=== PATIENT | male | born 1995 | race Caucasian/White ===

== ENCOUNTER 2018-01-08 04:11 | Emergency (ER) | payer OTHER ==
[~2018-01-08] VITALS: Ht 175.3 cm; Wt 94.0 kg
[2018-01-08 04:26] VITALS: BP 128/71; PULSE 110; RESP 18; TEMP 98.7; O2SAT 98
[2018-01-08] MEDS ORDERED: BENZ0.5T PO (04:31)
[2018-01-08] MEDS ORDERED: RISP4TAB41 PO (04:31)
[2018-01-08] MEDS ORDERED: LITH8SYP PO (04:31)
--- NOTE | 2018-01-08 04:47 | PD ---
HPI Chief Complaint: Psychiatric Symptoms Time Seen by Provider: 04:26 Travel History International Travel<30 days: No Contact w/Intl Traveler<30days: No Traveled to known affect area: No History of Present Illness HPI Patient is a 22-year-old male presenting to the emergency department under [facility] act for psychiatric evaluation. Patient was found at the beach, soaked and covered in sand. Patient told his mother that he was going into the water to kill himself, he told her he was in direct contact with God. Patient denies this, he states he was at the beach looking for friends. He then started talking about a homeless man that his mother would not give a ride to who look like Evan. Patient denies any suicidal ideations, homicidal ideations, hallucinations. He has no physical complaints at this time. Patient lives with his mother who he states has her own issues. He reports being a "product of his environment". PFSH Past Medical History Bipolar Disorder: Yes Diminished Hearing: No Psychiatric: Yes (BIPOLAR WITH PSYCHOTIC FEATURES) Immunizations Current: Yes Tetanus Vaccination: Unknown Influenza Vaccination: Yes Past Surgical History Surgical History: No Previous Surgery Social History Alcohol Use: No Tobacco Use: No Substance Use: No Allergies-Medications (Allergen,Severity, Reaction): Coded Allergies: No Known Allergies (Unverified , 01/08/18) Reported Meds & Prescriptions Reported Meds & Active Scripts Active Reported [place] Liq 300 Mg/5 Ml Liq 150 Mg PO TID Benztropine (Benztropine Mesylate) 0.5 Mg Tab 0.5 Mg PO BID Risperdal (Risperidone) 4 Mg Tab 4 Mg PO DAILY Review of Systems Except as stated in HPI: all other systems reviewed are Neg Psychiatric: Positive: Suicidal Ideations, Disorder of Thought, Mood Disorder Physical Exam Narrative GENERAL: Well-developed, well-nourished, alert male. Presenting in no acute distress. SKIN: Warm and dry. HEAD: Atraumatic. Normocephalic. EYES: Pupils equal and round. No scleral icterus. No injection or drainage. ENT: No nasal bleeding or discharge. Mucous membranes pink and moist. NECK: Trachea midline. No JVD. CARDIOVASCULAR: Regular rate and rhythm. RESPIRATORY: No accessory muscle use. Clear to auscultation. Breath sounds equal bilaterally. GASTROINTESTINAL: Abdomen soft, non-tender, nondistended. Hepatic and splenic margins not palpable. MUSCULOSKELETAL: Extremities without clubbing, cyanosis, or edema. No obvious deformities. NEUROLOGICAL: Awake and alert. No obvious cranial nerve deficits. Motor grossly within normal limits. Five out of 5 muscle strength in the arms and legs. Normal speech. PSYCHIATRIC: Appropriate mood and affect; insight and judgment normal. Data Data Last Documented VS Vital Signs Date Time Temp Pulse Resp B/P (MAP) Pulse Ox O2 Delivery O2 Flow Rate FiO2 01/08/18 04:26 98.7 110 18 128/71 (90) 98 Orders Orders Complete Blood Count With Diff (01/08/18 04:26) Comprehensive Metabolic Panel (01/08/18 04:26) Thyroid Stimulating Hormone (01/08/18 04:26) Psych Screen (01/08/18 04:26) Drug Screen, Random Urine (01/08/18 04:26) Alcohol (Ethanol) (01/08/18 04:26) Salicylates (Aspirin) (01/08/18 04:26) Tylenol (Acetaminophen) (01/08/18 04:26) Diet Regular Basic (01/08/18 Breakfast) Labs Laboratory Tests Test 01/08/18 04:30 01/08/18 06:15 Urine Opiates Screen NEG Urine Barbiturates Screen NEG Urine Amphetamines Screen NEG Urine Benzodiazepines Screen NEG Urine Cocaine Screen NEG Urine Cannabinoids Screen NEG White Blood Count 11.9 TH/MM3 Red Blood Count 6.87 MIL/MM3 Hemoglobin 13.2 GM/DL Hematocrit 42.2 % Mean Corpuscular Volume 61.4 FL Mean Corpuscular Hemoglobin 19.3 PG Mean Corpuscular Hemoglobin Concent 31.4 % Red Cell Distribution Width 15.6 % Platelet Count 291 TH/MM3 Mean Platelet Volume 9.0 FL Neutrophils (%) (Auto) 75.2 % Lymphocytes (%) (Auto) 15.5 % Monocytes (%) (Auto) 8.4 % Eosinophils (%) (Auto) 0.1 % Basophils (%) (Auto) 0.8 % Neutrophils # (Auto) 9.0 TH/MM3 Lymphocytes # (Auto) 1.9 TH/MM3 Monocytes # (Auto) 1.0 TH/MM3 Eosinophils # (Auto) 0.0 TH/MM3 Basophils # (Auto) 0.1 TH/MM3 CBC Comment DIFF FINAL Differential Comment Blood Urea Nitrogen 15 MG/DL Creatinine 1.05 MG/DL Random Glucose 141 MG/DL Total Protein 6.9 GM/DL Albumin 3.8 GM/DL Calcium Level 8.4 MG/DL Alkaline Phosphatase 79 U/L Aspartate Amino Transf (AST/SGOT) 26 U/L Alanine Aminotransferase (ALT/SGPT) 38 U/L Total Bilirubin 0.6 MG/DL Sodium Level 142 MEQ/L Potassium Level 3.7 MEQ/L Chloride Level 108 MEQ/L Carbon Dioxide Level 24.8 MEQ/L Anion Gap 9 MEQ/L Estimat Glomerular Filtration Rate 90 ML/MIN Thyroid Stimulating Hormone 3rd Gen 3.870 uIU/ML Salicylates Level LESS THAN 1.7 MG/DL Acetaminophen Level LESS THAN 2.0 MCG/ML Ethyl Alcohol Level LESS THAN 3 MG/DL MDM Medical Decision Making Medical Screen Exam Complete: Yes Emergency Medical Condition: Yes Interpretation(s) Laboratory Tests Test 01/08/18 04:30 01/08/18 06:15 Urine Opiates Screen NEG Urine Barbiturates Screen NEG Urine Amphetamines Screen NEG Urine Benzodiazepines Screen NEG Urine Cocaine Screen NEG Urine Cannabinoids Screen NEG White Blood Count 11.9 TH/MM3 Red Blood Count 6.87 MIL/MM3 Hemoglobin 13.2 GM/DL Hematocrit 42.2 % Mean Corpuscular Volume 61.4 FL Mean Corpuscular Hemoglobin 19.3 PG Mean Corpuscular Hemoglobin Concent 31.4 % Red Cell Distribution Width 15.6 % Platelet Count 291 TH/MM3 Mean Platelet Volume 9.0 FL Neutrophils (%) (Auto) 75.2 % Lymphocytes (%) (Auto) 15.5 % Monocytes (%) (Auto) 8.4 % Eosinophils (%) (Auto) 0.1 % Basophils (%) (Auto) 0.8 % Neutrophils # (Auto) 9.0 TH/MM3 Lymphocytes # (Auto) 1.9 TH/MM3 Monocytes # (Auto) 1.0 TH/MM3 Eosinophils # (Auto) 0.0 TH/MM3 Basophils # (Auto) 0.1 TH/MM3 CBC Comment DIFF FINAL Differential Comment Blood Urea Nitrogen 15 MG/DL Creatinine 1.05 MG/DL Random Glucose 141 MG/DL Total Protein 6.9 GM/DL Albumin 3.8 GM/DL Calcium Level 8.4 MG/DL Alkaline Phosphatase 79 U/L Aspartate Amino Transf (AST/SGOT) 26 U/L Alanine Aminotransferase (ALT/SGPT) 38 U/L Total Bilirubin 0.6 MG/DL Sodium Level 142 MEQ/L Potassium Level 3.7 MEQ/L Chloride Level 108 MEQ/L Carbon Dioxide Level 24.8 MEQ/L Anion Gap 9 MEQ/L Estimat Glomerular Filtration Rate 90 ML/MIN Thyroid Stimulating Hormone 3rd Gen 3.870 uIU/ML Salicylates Level LESS THAN 1.7 MG/DL Acetaminophen Level LESS THAN 2.0 MCG/ML Ethyl Alcohol Level LESS THAN 3 MG/DL Vital Signs Date Time Temp Pulse Resp B/P (MAP) Pulse Ox O2 Delivery O2 Flow Rate FiO2 01/08/18 04:26 98.7 110 18 128/71 (90) 98 Differential Diagnosis Mood disorder versus psychosis versus substance abuse versus suicidal ideations versus other Narrative Course Patient is a 22-year-old male that presented to the emergency department under [facility] act for psychiatric evaluation. His vital signs are stable, Mental health screening discussed with the patient. Psychiatric screen ordered. Labs reviewed, no acute findings identified. Urine drug screen is negative, alcohol level is negative, acetaminophen and salicylate levels are unremarkable. Patient has been resting comfortably. He is medically cleared for psychiatric evaluation Diagnosis Primary Impression: Medical clearance for psychiatric admission Condition: Stable Debra Stevens January 08, 2018 04:47
[2018-01-08 06:45] LABS: BASOPHIL # 0.1 TH/MM3 (0-0.2); BASOPHIL % 0.8 % (0.0-2.0); EOSINOPHIL % 0.1 % (0.0-4.0); HEMATOCRIT 42.2 % (39.0-51.0); HEMOGLOBIN 13.2 GM/DL (13.0-17.0); LYMPH % 15.5 % (9.0-44.0); LYMPHOCYTE # 1.9 TH/MM3 (1.0-4.8); MEAN CELL VOLUME 61.4 FL (80.0-100.0); MEAN CORPUSCULAR HEMOGLOBIN 19.3 PG (27.0-34.0); MEAN CORPUSCULAR HGB CONC 31.4 % (32.0-36.0); MONO % 8.4 % (0.0-8.0); NEUT % 75.2 % (16.0-70.0); PLATELET COUNT 291 TH/MM3 (150-450); RED BLOOD COUNT 6.87 MIL/MM3 (4.50-5.90); RED CELL DISTRIBUTION WIDTH 15.6 % (11.6-17.2); WHITE BLOOD COUNT 11.9 TH/MM3 (4.0-11.0)
[2018-01-08 07:05] LABS: ALBUMIN 3.8 GM/DL (3.4-5.0); ALT (GPT) 38 U/L (9-52); AST (GOT) 26 U/L (15-39); BICARBONATE 24.8 MEQ/L (21.0-32.0); BLOOD UREA NITROGEN 15 MG/DL (7-18); CALCIUM 8.4 MG/DL (8.5-10.1); CHLORIDE 108 MEQ/L (98-107); CREATININE 1.05 MG/DL (0.60-1.30); GLOMERULAR FILTRATION RATE 90 ML/MIN (>89); GLUCOSE,RANDOM 141 MG/DL (74-106); SODIUM (NA) 142 MEQ/L (136-145)
[2018-01-08 07:15] VITALS: BP 124/78; PULSE 88; RESP 16; TEMP 98; O2SAT 99
[2018-01-08 07:15] LABS: ALKALINE PHOSPHATASE 79 U/L (45-117); TOTAL BILIRUBIN ADULT 0.6 MG/DL (0.2-1.0); TOTAL PROTEIN 6.9 GM/DL (6.4-8.2)
[2018-01-08 07:24] LABS: ACETAMINOPHEN LESS THAN 2.0 MCG/ML (10.0-30.0)
--- NOTE | 2018-01-08 09:00 | PD ---
History of Present Illness Chief Complaint: Psychiatric Symptoms Time Seen by Provider: 08:00 Travel History International Travel<30 Days: No Contact w/Intl Traveler<30days: No Known affected area: No Legal Status Legal Status: [facility] Act History of Present Illness: This is a 22-year-old single, male who presents under a [facility] act to this facility for reportedly making suicidal statements. He is unknown to this facility previously. Reviewed electronic medical records, labs, discuss case with staff. Toxicology screen is negative. Evaluation was performed in the main ED in patient's room. Patient was found awake, alert and oriented 4. His speech is clear, logical , and organized. There is no indication of internal stimuli and no thought blocking is present. He denies suicidal ideation, homicidal ideation, auditory or visual hallucinations. I can elicit no delusional material at this time. Spoke with his mother, Estelita [phone], with his permission. She reports that he does have a history of mental illness and has not been compliant with his medications. She also states that patient was manic yesterday. He does not appear manic today. Patient lives with his mother she advises he can come back there. PFSH Past Medical History Bipolar Disorder: Yes Diminished Hearing: No Psychiatric: Yes (BIPOLAR WITH PSYCHOTIC FEATURES) Immunizations Current: Yes Tetanus Vaccination: Unknown Influenza Vaccination: Yes Past Surgical History Surgical History: No Previous Surgery Psychiatric History Psychiatric History Patient reports that he is prescribed Risperdal, Cogentin, lithium. He is established outpatient with the provider. History of Inpatient Treatment: Yes Guns or firearms in home: No Social History Hx Alcohol Use: No Hx Tobacco Use: No Hx Substance Use: No Allergies-Medications (Allergen,Severity, Reaction): Coded Allergies: No Known Allergies (Unverified , 01/08/18) Reported Meds & Prescriptions Reported Meds & Active Scripts Active Reported [place] Liq 300 Mg/5 Ml Liq 150 Mg PO TID Benztropine (Benztropine Mesylate) 0.5 Mg Tab 0.5 Mg PO BID Risperdal (Risperidone) 4 Mg Tab 4 Mg PO DAILY Mental Status Examination Appearance: Appropriate Consciousness: Alert Orientation: x4 Motor Activity: Normal gait Speech: Unremarkable Language: Adequate Fund of Knowledge: Adequate Attention and Concentration: Adequate Memory: Unremarkable Mood: Appropriate, Good Affect: Appropriate, Euthymic Thought Process & Associations: Intact Thought Content: Appropriate Hallucination Type: None Delusion Type: None Suicidal Ideation: No Suicidal Plan: No Suicidal Intention: No Homicidal Ideation: No Homicidal Plan: No Homicidal Intention: No Insight: Adequate Judgment: Adequate MDM Medical Decision Making Medical Record Reviewed: Yes Assessment/Plan This is a 22-year-old, single, male who presented under [employer] act for reportedly making suicidal threats. His mother called police reporting that he stated he was going to kill himself by jumping in the water. Upon examination this morning patient is awake, alert, and oriented 4. His speech is clear, logical, and organized. There is no internal stimulation or thought blocking present. He denies being suicidal, homicidal, having auditory or visual hallucinations. I can elicit no delusional material. His mood is good and his affect is euthymic. Patient is established with an outpatient psychiatrist. At this time he does not meet admission criteria. Consulted with Dr. Perez, ED physician. She too has assessed the patient and concurs with my assessment. She has lifted the [facility] act. He will be discharged with instructions to follow -up with his outpatient psychiatrist. He will be advised that he can return to this facility should his condition worsen. Orders Orders Complete Blood Count With Diff (01/08/18 04:26) Comprehensive Metabolic Panel (01/08/18 04:26) Thyroid Stimulating Hormone (01/08/18 04:26) Psych Screen (01/08/18 04:26) Drug Screen, Random Urine (01/08/18 04:26) Alcohol (Ethanol) (01/08/18 04:26) Salicylates (Aspirin) (01/08/18 04:26) Tylenol (Acetaminophen) (01/08/18 04:26) Diet Regular Basic (01/08/18 Breakfast) Results Vital Signs Date Time Temp Pulse Resp B/P (MAP) Pulse Ox O2 Delivery O2 Flow Rate FiO2 01/08/18 04:26 98.7 110 18 128/71 (90) 98 Laboratory Tests Test 01/08/18 04:30 01/08/18 06:15 Urine Opiates Screen NEG Urine Barbiturates Screen NEG Urine Amphetamines Screen NEG Urine Benzodiazepines Screen NEG Urine Cocaine Screen NEG Urine Cannabinoids Screen NEG White Blood Count 11.9 Red Blood Count 6.87 Hemoglobin 13.2 Hematocrit 42.2 Mean Corpuscular Volume 61.4 Mean Corpuscular Hemoglobin 19.3 Mean Corpuscular Hemoglobin Concent 31.4 Red Cell Distribution Width 15.6 Platelet Count 291 Mean Platelet Volume 9.0 Neutrophils (%) (Auto) 75.2 Lymphocytes (%) (Auto) 15.5 Monocytes (%) (Auto) 8.4 Eosinophils (%) (Auto) 0.1 Basophils (%) (Auto) 0.8 Neutrophils # (Auto) 9.0 Lymphocytes # (Auto) 1.9 Monocytes # (Auto) 1.0 Eosinophils # (Auto) 0.0 Basophils # (Auto) 0.1 CBC Comment DIFF FINAL Differential Comment Blood Urea Nitrogen 15 Creatinine 1.05 Random Glucose 141 Total Protein 6.9 Albumin 3.8 Calcium Level 8.4 Alkaline Phosphatase 79 Aspartate Amino Transf (AST/SGOT) 26 Alanine Aminotransferase (ALT/SGPT) 38 Total Bilirubin 0.6 Sodium Level 142 Potassium Level 3.7 Chloride Level 108 Carbon Dioxide Level 24.8 Anion Gap 9 Estimat Glomerular Filtration Rate 90 Thyroid Stimulating Hormone 3rd Gen 3.870 Salicylates Level LESS THAN 1.7 Acetaminophen Level LESS THAN 2.0 Ethyl Alcohol Level LESS THAN 3 Diagnosis Primary Impression: Schizophrenia Psychiatrically Cleared: Yes Condition: Stable Madyson Horowitz January 08, 2018 09:00
--- NOTE | 2018-01-08 09:09 | PD ---
Physical Exam Date Seen by Provider: January 08, 2018 Data Data Last Documented VS Vital Signs Date Time Temp Pulse Resp B/P (MAP) Pulse Ox O2 Delivery O2 Flow Rate FiO2 01/08/18 04:26 98.7 110 18 128/71 (90) 98 Orders Orders Complete Blood Count With Diff (01/08/18 04:26) Comprehensive Metabolic Panel (01/08/18 04:26) Thyroid Stimulating Hormone (01/08/18 04:26) Psych Screen (01/08/18 04:26) Drug Screen, Random Urine (01/08/18 04:26) Alcohol (Ethanol) (01/08/18 04:26) Salicylates (Aspirin) (01/08/18 04:26) Tylenol (Acetaminophen) (01/08/18 04:26) Diet Regular Basic (01/08/18 Breakfast) Labs Laboratory Tests Test 01/08/18 04:30 01/08/18 06:15 Urine Opiates Screen NEG Urine Barbiturates Screen NEG Urine Amphetamines Screen NEG Urine Benzodiazepines Screen NEG Urine Cocaine Screen NEG Urine Cannabinoids Screen NEG White Blood Count 11.9 TH/MM3 Red Blood Count 6.87 MIL/MM3 Hemoglobin 13.2 GM/DL Hematocrit 42.2 % Mean Corpuscular Volume 61.4 FL Mean Corpuscular Hemoglobin 19.3 PG Mean Corpuscular Hemoglobin Concent 31.4 % Red Cell Distribution Width 15.6 % Platelet Count 291 TH/MM3 Mean Platelet Volume 9.0 FL Neutrophils (%) (Auto) 75.2 % Lymphocytes (%) (Auto) 15.5 % Monocytes (%) (Auto) 8.4 % Eosinophils (%) (Auto) 0.1 % Basophils (%) (Auto) 0.8 % Neutrophils # (Auto) 9.0 TH/MM3 Lymphocytes # (Auto) 1.9 TH/MM3 Monocytes # (Auto) 1.0 TH/MM3 Eosinophils # (Auto) 0.0 TH/MM3 Basophils # (Auto) 0.1 TH/MM3 CBC Comment DIFF FINAL Differential Comment Blood Urea Nitrogen 15 MG/DL Creatinine 1.05 MG/DL Random Glucose 141 MG/DL Total Protein 6.9 GM/DL Albumin 3.8 GM/DL Calcium Level 8.4 MG/DL Alkaline Phosphatase 79 U/L Aspartate Amino Transf (AST/SGOT) 26 U/L Alanine Aminotransferase (ALT/SGPT) 38 U/L Total Bilirubin 0.6 MG/DL Sodium Level 142 MEQ/L Potassium Level 3.7 MEQ/L Chloride Level 108 MEQ/L Carbon Dioxide Level 24.8 MEQ/L Anion Gap 9 MEQ/L Estimat Glomerular Filtration Rate 90 ML/MIN Thyroid Stimulating Hormone 3rd Gen 3.870 uIU/ML Salicylates Level LESS THAN 1.7 MG/DL Acetaminophen Level LESS THAN 2.0 MCG/ML Ethyl Alcohol Level LESS THAN 3 MG/DL MDM Medical Record Reviewed: Yes Supervised Visit with MARY: Yes Narrative Course Patient is a 22-year-old male who is alert and oriented x 3, was brought to the emergency room under a [facility] act as patient's mother stated that patient was going to throw himself into the water and kill himself. Patient reports that he is not suicidal or homicidal, reports that he just wanted to go out for a walk on the beach and was walking along the water front. Patient adamantly denies suicidal or homicidal ideation. Reports "I never ever said I wanted to kill myself." Patient was seen by mental health provider, Madyson Horowitz. Patient does not meet inpatient criteria. Patient adamantly denies suicidal or homicidal idealization, [facility] act will be lifted Patient wishes to be discharged to home with outpatient follow-up. Patient will return to the emergency room as needed. Diagnosis Primary Impression: Medical clearance for psychiatric admission Additional Impression: Schizophrenia Qualified Codes: F20.9 - Schizophrenia, unspecified Patient Instructions: General Instructions Additional Instruction: Please follow up with your primary care doctor Return to ER as needed Disposition: 01 DISCHARGE HOME Condition: Stable Shtial Perez DO January 08, 2018 09:09
[2018-01-08 12:30] VITALS: BP 122/72
== END 2018-01-08 12:40 | disposition home or self-care (01) ==
LOC: NEPD 04:11
DX: F20.9 Schizophrenia, unspecified (principal); Z79.899 Other long term (current) drug therapy
CPT/HCPCS: 80053; 80307; 84443; 85025; 99283